=== PATIENT | male | born 1945 | race Caucasian/White ===

== ENCOUNTER 2019-03-06 12:06 | Outpatient (CLI) | payer MEDICARE, SELFPAY ==
--- NOTE | ~2019-03-06 | XR_ITS ---
EXAMINATION: XR abdomen/kub 1V INDICATION: Constipation TECHNIQUE: Supine views of the abdomen were obtained on 2 radiographs. COMPARISON: 06/21/2011 FINDINGS: There are changes of mesh ventral hernia repair. A large volume of colonic stool is present . There is moderate bilateral hip osteoarthritis. There are no dilated loops of bowel. The visualized lung bases are clear. IMPRESSION: 1. Constipation. Reviewed, dictated and finalized at [facility]. IC[employer] TRA[employer]IST IMPRESSION: 1. Constipation.
[2019-03-06 13:20] LABS: Hemoglobin A1C 5.4 % (<5.7)
== END 2019-03-06 12:07 | disposition home or self-care (01) ==
PROVIDERS: PCP Internal Medicine; Visit Provider Internal Medicine
DX: K59.00 Constipation, unspecified (principal); E11.9 Type 2 diabetes mellitus without complications
CPT/HCPCS: 36415; 74018; 83036

== ENCOUNTER 2019-09-03 13:13 | Outpatient (CLI) | payer MEDICARE, SELFPAY ==
[2019-09-03 13:49] LABS: Alanine Aminotransferase 15 U/L (4-50); Albumin Level 3.7 g/dL (3.5-5.1); Alkaline Phosphatase 42 U/L (38-126); Anion Gap 10.1 mmol/L (7-16); Aspartate Amino Transferase 23 U/L (17-59); Bilirubin,Total 1.5 mg/dL (0.2-1.3); Blood Urea Nitrogen 19 mg/dL (9-20); Calcium 8.8 mg/dL (8.4-10.2); Carbon Dioxide 27 mmol/L (22-30); Chloride 107 mmol/L (98-107); Cholesterol 112 mg/dL (0-200); Estimated Glomerular Filt Rate > 60; Glucose 131 mg/dL (75-110); HDL Direct 40 mg/dL; Potassium 4.1 mmol/L (3.4-5.0); Sodium 140 mmol/L (137-145); Triglycerides 52 mg/dL (<150)
[2019-09-03 13:59] LABS: Hemoglobin A1C 5.1 % (<5.7)
[2019-09-03 14:01] LABS: LDL Cholesterol Direct 54 mg/dL
== END 2019-09-03 13:14 | disposition home or self-care (01) ==
PROVIDERS: PCP Internal Medicine; Visit Provider Nurse Practitioner
DX: E78.5 Hyperlipidemia, unspecified (principal); E11.9 Type 2 diabetes mellitus without complications
CPT/HCPCS: 36415; 80053; 80061; 83036

== ENCOUNTER 2020-07-09 12:57 | Emergency (ER) | payer MEDICARE, SELFPAY ==
--- NOTE | ~2020-07-09 | CT_ITS ---
EXAMINATION: CT brain wo con DATE: 07/09/2020 17:06 INDICATION: Seizure TECHNIQUE: Computed tomography (CT) of the head was performed without intravenous contrast. The mA wa s adjusted according to patient size. Iterative reconstruction technique was employed. Exam dose: 75 6.67 mGy-cm total exam DLP. COMPARISON: March 12, 2015 CT brain FINDINGS: Examination is limited due to lack of patient mobility fully cooperate. There is streak art ifact, particularly high over the convexities. Cerebral atrophy. Calcification of the internal carotid arteries. Nonspecific diminished attenuation of the cerebral white matter, likely due to chronic small vessel i schemic changes. No apparent intracranial mass lesion or hemorrhage, midline shift or mass effect effect or subdural o r epidural hematoma is evident on this limited examination. No fracture or bone destruction or cranial vault. The mastoid air cells and paranasal sinuses are unremarkable. IMPRESSION: Limited examination; no acute intracranial finding Cerebral atherosclerosis and chronic small vessel ischemic changes of the cerebral white matter Cerebral atrophy Reviewed, dictated and finalized at [facility]. Reviewed, dictated and finalized at [facility]. IMPRESSION: Limited examination; no acute intracranial finding Cerebral atherosclerosis and chronic small vessel ischemic changes of the cereb ral white matter Cerebral atrophy
[2020-07-09 13:02] VITALS: BP 116/48; PULSE 72; TEMP 36.6; O2SAT 99
[2020-07-09 13:16] VITALS: PULSE 73
[2020-07-09 13:17] VITALS: O2SAT 97
--- NOTE | 2020-07-09 13:20 | ECG_ITS ---
Measurements Intervals [place] Rate: 50 P: ND: 0 QRS: -1 QRSD: 93 T: 42 QT: 429 QTc: 392 Interpretive Statements ATRIAL FIBRILLATION WITH SLOW VENTRICULAR RESPONSE LOW QRS VOLTAGE IN PRECORDIAL LEADS BASELINE ARTIFACT- II, III, AVF, V3-V6 ABNORMAL ECG Electronically Signed On 07-09-2020 16:23:27 CDT by Yassine Dent D.O.
--- NOTE | 2020-07-09 13:21 | PC.NURSE ---
Seizure pads and bed alarm placed on patient.
[2020-07-09 14:19] LABS: Add Urine Microscopic? YES; Appearance Urine Cloudy (Clear); Bacteria Urine 2+ /hpf; Bilirubin Urine Negative (Negative); Blood Urine 3+ (Negative); Color Urine Yellow (Yellow); Glucose Urine UA Negative (Negative); Hyaline Casts Urine 50+ /lpf; Ketones Urine Negative (Negative); Leukocyte Esterase Ur Trace LEU/UL (Negative); Mucus Urine Few /lpf; Nitrate Urine Negative (Negative); Protein Urine 2+ mg/dL (Negative); RBC Urine 51-75 /hpf (0-2); Specific Grav Ur 1.026 (1.001-1.035); Squamous Epithelial Cell Urine Few /hpf (Few); WBC Clumps Urine Present /HPF; WBC Urine 21-30 /hpf
[2020-07-09 15:01] LABS: Basophils Percent Auto 0.9 % (0.2-1.2); Eosinophils Percent Auto 0.7 % (0-4.4); Hematocrit 37.4 % (42.0-52.0); Hemoglobin 12.3 g/dL (14.0-18.0); Immature Granulocyte Absolute 0.06 K/mm3 (0.00-0.031); Immature Granulocyte Percent A 1.4 % (0-0.5); Lymphocytes Absolute Auto 0.77 K/mm3 (0.9-3.2); Lymphocytes Percent Auto 17.9 % (18.3-44.2); Mean Corpuscular HGB Conc 32.9 g/dl (32-36); Mean Corpuscular Hemoglobin 32.4 pg (26-34); Mean Corpuscular Volume 98.4 fl (80-100); Mean Platelet Volume 9.5 fl (7.4-10.4); Monocytes Absolute Auto 0.3 K/mm3 (0.1-0.6); Monocytes Percent Auto 6.5 % (2.6-8.5); Neutrophils Absolute Auto 3.1 K/mm3 (1.3-6.7); Neutrophils Percent Auto 72.6 % (45.5-73.1); Platelet Count Result 197 k/mm3 (150-375); Red Cell Distribution Width 12.7 % (11.5-14.5); White Blood Count 4.3 K/mm3 (4.5-10.0)
[2020-07-09 15:13] LABS: Alanine Aminotransferase 14 U/L (4-50); Albumin Level 3.6 g/dL (3.5-5.1); Alkaline Phosphatase 45 U/L (38-126); Anion Gap 5 mmol/L (8-16); Aspartate Amino Transferase 25 U/L (17-59); Bilirubin,Total 0.9 mg/dL (0.2-1.3); Blood Urea Nitrogen 25 mg/dL (9-20); Calcium 9.1 mg/dL (8.4-10.2); Carbon Dioxide 28 mmol/L (22-30); Chloride 110 mmol/L (98-107); Estimated CRCL calculation 62 ml/min; Estimated Glomerular Filt Rate > 60; Glucose 114 mg/dL (75-110); Phosphorus 3.1 mg/dL (2.5-4.5); Potassium 4.2 mmol/L (3.4-5.0); Sodium 143 mmol/L (137-145)
[2020-07-09] MEDS: levETIRAcetam 500MG/NACL 100ML 500 MG/100 ML BAG 400 MG IVPB (18:09)
--- NOTE | 2020-07-09 18:58 | ED.SEIZURE ---
HPI - Seizure General Chief Complaint: Seizure Stated Complaint: SEIZURE Time Seen by Provider: 07/09/20 13:25 Source: family and EMS Mode of arrival: EMS Limitations: dementia History of Present Illness HPI Narrative: 75-year-old male Severe Lewy body dementia, not ambulatory, baseline is oriented x0-1 Patient has been declining relatively steadily but perhaps an accelerated way, is followed at the [facility] with [facility] Today at lunchtime his daughter was feeding him and as he took his first bite he threw his arms in the air clenched his teeth and began to shake, which lasted about 30 seconds The arms dropped down and to the jaw all relaxed but a small amount of diffuse tremor or shaking persisted for a couple of minutes before resolving Because of his dementia it is kind of hard to tell if he was postictal but he was perhaps less alert and verbal than usual There was no injury, he did not bite his tongue, he was not incontinent Related Data Home Medications Medication Instructions Recorded Confirmed melatonin 3 mg capsule 3 mg PO .qhs PRN cap 12/30/19 03/31/20 Allergies Allergy/AdvReac Type Severity Reaction Status Date / Time garlic Allergy Mild Other Verified 07/08/20 10:36 Review of Systems Review of Systems: ROS unobtainable: Yes unobtainable due to mental status PMFSH Past Medical History Medical History Atrial fibrillation Bradycardia Dementia Diabetes 1.5, 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 DM w/o complication type II Hypersomnia MAYURI on CPAP Sleep apnea in adult Surgical History Surgical History History of hernia repair History of knee surgery Family History Family History Father Family history of malignant neoplasm Family history of lung cancer Mother Family history of malignant neoplasm of uterus Social History Social History (Updated 07/08/20 @ 10:17 by Ching Hugo MA) Smoking status: Never smoker Second hand tobacco smoke exposure: Yes Alcohol intake: former Exam Const: General: cooperative, no acute distress and ill appearing Orientation/consciousness: confusion HENMT: Head: normal to inspection, normocephalic, atraumatic, no contusions and no hematomas Ears: external ears normal Eyes: Conjunctivae: conjunctivae normal EOM: EOMs intact bilaterally Neck: Neck: normal visual inspection, supple and no JVD Resp: Effort & Inspection: normal respiratory effort and not labored Auscultation: clear to auscultation bilaterally, no rales, no rhonchi, no wheezes and other (BS =) Cardio: Rate: regular rate and bradycardic Rhythm: regular rhythm Heart sounds: no murmurs GI: GI Palp: Yes Soft to palpation and No Tenderness to palpation present (GI) Skin: General skin exam: normal color and no rashes or lesions noted Neuro: General: moves all extremities Other: lethargic, nonverbal, does appear to move x 4 Extrem: General: normal to inspection and no pedal edema Psych: Affect: normal affect Course Course Emergency Course: Patient did become more awake and alert approaching his usual modest baseline per family Discussed with Dr. Caraballo who suggests that he would be possibly more prone to seizures due to Lewy body dementia and that just starting Keppra would be reasonable He did have some episodes of bradycardia down to the upper 40s confirmed with daughter and both that they did not intend to address his apparent sick sinus syndrome Also they have adequate help with their house to take care of him if he is discharged Vital Signs Vital signs: Vital Signs Temperature 36.6 C 07/09/20 13:02 Pulse Rate 72 07/09/20 13:02 Blood Pressure 116/48 L 07/09/20 13:02 Pulse Oximetry 99 07/09/20 13:02 Temperature 36.6 C 07/09/20 13:02 Pulse Rate
[2020-07-09 19:46] VITALS: BP 104/65; PULSE 55; RESP 15; O2SAT 92
== END 2020-07-09 20:01 | disposition home or self-care (01) ==
PROVIDERS: Emergency Medicine; Emergency Provider Emergency Medicine; PCP Internal Medicine
DX: R56.9 Unspecified convulsions (principal); G31.83 Neurocognitive disorder with Lewy bodies; F02.80 Dementia in other diseases classified elsewhere, unspecified severity, without behavioral disturbance, psychotic disturbance, mood disturbance, and anxiety; N39.0 Urinary tract infection, site not specified; I49.5 Sick sinus syndrome; I48.91 Unspecified atrial fibrillation; E11.9 Type 2 diabetes mellitus without complications; G47.33 Obstructive sleep apnea (adult) (pediatric); Z79.01 Long term (current) use of anticoagulants
CPT/HCPCS: 36415; 51701; 70450; 80053; 81001; 84100; 85025; 87077; 87086; 87088; 87186; 93005; 96365; 96367; 99284; J0696; J1953